=== PATIENT | female | born 1970 | race Caucasian/White ===

== ENCOUNTER → 2019-01-12 | Outpatient (CLI) | payer BC ==
--- NOTE | 2019-01-12 14:19 | KCIC ---
Examination: Ultrasound abdomen complete HISTORY: History of abdominal pain, vomiting COMPARISON: None available FINDINGS: The pancreas grossly appears unremarkable The gallbladder is filled with gallstones with wall echo shadowing. The gallbladder wall thickness measures 2.3 mm. The liver demonstrates a 1.7 cm echogenicity in the left lobe of the liver probably hemangioma. The right lobe of the liver measures 15.2 cm. The right kidney measures 10.6 x 4.6 x 4.2 cm. Left kidney measures 11.0 x 4.8 x 4.4 cm. The evaluation of the left kidney somewhat limited due to bowel gas. The spleen measures 11.2 cm in length. The visualized aorta, IVC within normal limits of dimension. IMPRESSION: 1. Cholelithiasis filling the gallbladder with wall echo shadowing. 2. 1.7 cm echogenicity identified in the left lobe of the liver likely a hemangioma Electronically signed by: Kali Gilbert MD (01/12/2019 2:15 PM) [id number]
== END | disposition home or self-care (01) ==
LOC: KCIC US 12:08
PROVIDERS: ATTEND Internal Medicine
DX: K80.20 Calculus of gallbladder without cholecystitis without obstruction (principal)
CPT/HCPCS: 76700